=== PATIENT | male | born 1945 | race Caucasian/White ===

== ENCOUNTER 2016-12-16 02:22 | Emergency (ER) | payer OTHER, MEDICARE ==
[~2016-12-16] VITALS: Ht 162.6 cm; Wt 73.0 kg
[~2016-12-16 02:22] MED LIST: BACTRIM 400 MG-1 TAB PO; BENZTROPINE ME0.5 M1 PO; DIVALPROEX SOD500 MG PO; FINASTERIDE5 MG PO; KEFLEX500 MG PO; OLANZAPINE20 MG PO; PYRIDIUM100 MG PO; SIMVASTATIN40 MG PO; TAMSULOSIN HYD0.4 MG PO; TYLENOL #31 TAB PO
--- NOTE | 2016-12-16 02:33 | ED AMS/SEIZURE/WEAK/DIZZY ---
History of Present Illness General Chief Complaint: ETOH/Drug Related Complaint Stated Complaint: "BIBA PER EMS ETOH" Source: patient, EMS Exam Limitations: no limitations Vital Signs & Intake/Output Vital Signs & Intake/Output Vital Signs Date Time Temp Pulse Resp B/P Pulse O2 O2 Flow FiO2 Ox Delivery Rate 12/16 0352 97.4 86 18 146/86 94 Room Air 12/16 224 96.8 100 18 158/107 94 Room Air Allergies Coded Allergies: NO KNOWN ALLERGIES (06/08/16) Reconcile Medications Benztropine Mesylate 0.5 MG TABLET 1 TAB PO BID MENTAL HEALTH (Reported) Divalproex Sodium (Divalproex Sodium ER) 500 MG TAB.ER.24H 1 TAB PO BID MENTAL HEALTH (Reported) Finasteride 5 MG TAB 1 TAB PO AT BEDTIME PROSTATE (Reported) Olanzapine 20 MG TABLET 1 TAB PO QPM MENTAL HEALTH (Reported) Simvastatin 40 MG TABLET 1 TAB PO QPM CHOLESTEROL (Reported) TAMSULOSIN HCL (Tamsulosin Hydrochloride) 0.4 MG CAP 1 CAP PO DAILY PROSTATE (Reported) Triage Nurses Notes Reviewed? yes Onset: Gradual Duration: hour(s): Timing: single episode today Injury Environment: street Severity: moderate Modifying Factors: Improves With: rest. Associated Symptoms: increased confusion HPI: 71 yo gentleman h/o alcohol abuse and bipolar disorder presents to the ED via ambulance to erratic behavior on the street. Per the medics, he was found by police having a verbal altercation with a stop sign. She notes that he drank, "a whole bottle," of liquor earlier this evening. He shares that he fell and hit the left side of his face. He denies LOC. It's that he is otherwise well and has no pain or discomfort. Past History Travel History Traveled to [place] past 21 day No Medical History Any Pertinent Medical History? see below for history Neurological: NONE EENT: NONE Cardiovascular: hyperlipidemia Respiratory: NONE Gastrointestinal: GERD Hepatic: NONE Renal: NONE Musculoskeletal: NONE Psychiatric: alcohol dependence, bipolar disease, schizophrenia, MILD MENTAL RETARDATION Endocrine: NONE Blood Disorders: NONE Cancer(s): NONE [employer]/Reproductive: NONE Surgical History Surgical History: NONE Psychosocial History Who do you live with Patient/Self What is your primary language Armenian Family History Hx Contributory? No Review of Systems Review of Systems Constitutional: Reports: no symptoms. EENTM: Reports: no symptoms. Respiratory: Reports: no symptoms. Cardiovascular: Reports: no symptoms. GI: Reports: no symptoms. Genitourinary: Reports: no symptoms. Musculoskeletal: Reports: no symptoms. Skin: Reports: no symptoms. Neurological/Psychological: Reports: no symptoms. Hematologic/Endocrine: Reports: no symptoms. Immunologic/Allergic: Reports: no symptoms. All Other Systems: Reviewed and Negative Physical Exam Physical Exam General Appearance: well developed/nourished, mild distress, intoxicated Head: abrasion on his left cheek with swelling . Mild tenderness to palpation. No deformity Eyes: Bilateral: normal appearance, PERRL, EOMI. Ears, Nose, Throat: normal pharynx, normal ENT inspection Neck: normal inspection, supple, full range of motion Respiratory: normal breath sounds, chest non-tender, no respiratory distress, quiet respiration, lungs clear Cardiovascular: regular rate/rhythm Gastrointestinal: normal bowel sounds, soft, non-tender Back: normal inspection, normal range of motion, vertebral tenderness Extremities: normal range of motion Neurologic/Psych: no motor/sensory deficits, awake, alert, oriented x 3 Reflexes: 1+: bicep (R), bicep (L), knee (R), knee (L). Core Measures ACS in differential dx? No CVA/TIA Diagnosis: No Severe Sepsis Present: No Septic Shock Present: No Progress Differential Diagnosis: alcohol intoxication, dehydration, drug intoxication Plan of Care: Orders Procedure Date/time Status Regular Diet 12/16 B Active ETHANOL 12/16 243 Complete COMPREHENSIVE METABOLIC PANEL 12/16 243 Complete CBC WITHOUT DIFFERENTIAL 12/16 243 Complete URINE DRUG SCREEN FOR ER ONLY 12/16 233 Complete Laboratory Tests 12/16/16 0308: Anion Gap 9, Estimated GFR 60, BUN/Creatinine Ratio 11.7, Glucose 111 H, Calcium 9.8, Total Bilirubin 0.5, AST 27, ALT 22, Alkaline Phosphatase 65, Total Protein 7.0, Albumin 4.1, Globulin 2.9, Albumin/Globulin Ratio 1.4, CBC w Diff NO MAN DIFF REQ, RBC 4.74, MCV 93.3, MCH 30.9, RDW 14.6 H, MPV 7.9, Gran % 77.2 H, Lymphocytes % 14.9 L, Monocytes % 7.2, Eosinophils % 0.3, Basophils % 0.4, Absolute Granulocytes 7.4 H, Absolute Lymphocytes 1.4, Absolute Monocytes 0.7 H, Absolute Eosinophils 0, Absolute Basophils 0, PUBS MCHC 33.2, Serum Alcohol < 10.0 12/16/16 0250: Urine Opiates Screen < 100.00, Methadone Screen 42, Barbiturate Screen < 60, Ur Phencyclidine Scrn < 6.00, Amphetamines Screen < 100, U Benzodiazepines Scrn < 85, Urine Cocaine Screen < 50, Urine Cannabis Screen < 5.00 Patient comfortable. (JORGE JOEL,CLAUDIA Mckeon) Diagnostic Imaging: Viewed by Me: CT Scan. Discussed w/RAD: CT Scan. Radiology Impression: head/neck/maxillofacial... no acute fx/bleed. Initial ED EKG: none Comments: PATIENT: JACKIE MENDENHALL PRESENT AGE: 71 PATIENT ACCOUNT NO: [id number] : 45 LOCATION: [facility] ORDERING PHYSICIAN: CLAUDIA PATEL MD SERVICE DATE: 12/16/16 EXAM TYPE: CAT - CT CERV SPINE WO IV CONTRAST; CT HEAD WO IV CONTRAST; CT MAXILLOFACIAL W/O CON CT HEAD WITHOUT IV CONTRAST CT CERVICAL SPINE WITHOUT IV CONTRAST CT MAXILLOFACIAL WITHOUT IV CONTRAST INDICATION: Head injury/intoxication. COMPARISON: Head CT 06/09/2016. TECHNIQUE: Multidetector CT acquisitions of the head, maxillofacial region, and cervical spine were obtained without IV contrast. Multiplanar reformats were acquired and utilized for image interpretation. FINDINGS: HEAD: There is no intracranial hemorrhage, hydrocephalus, extra-axial surface collection, midline shift, or other herniation pattern. Mineralization within the globus pallidus bilaterally. Chronic microangiopathy and global cerebral volume loss. Warren to white matter differentiation is diffusely maintained without evidence of an evolved acute territorial infarct. The basilar cisterns are preserved. No significant soft tissue abnormality. No acute osseous abnormality. The paranasal sinuses and the mastoid air cells are well-aerated. MAXILLOFACIAL: There is left facial soft tissue swelling. The mandible, maxilla, pterygoid plates, nasal bones, zygomatic arches, paranasal sinus andre, and bony orbits are intact. No acute osseous abnormality within the maxillofacial region. Chronic traumatic deformity of the right orbital floor. Moderate opacification of the left maxillary sinus with an associated retention cyst. A polyp extends from the left maxillary sinus and the left nasal cavity via the left maxillary red-ostium. There is mild mucosal thickening within the inferior frontal sinuses and throughout the ethmoid air cells bilaterally. Mild mucosal thickening within the left sphenoid sinus. There is leftward deviation of the nasal septum with a leftward directed septal spur. Arminda bullosa within the middle turbinates bilaterally. Degenerative changes involving the right TMJ. Significant periapical disease involving the residual right maxillary dentition and the left mandibular first premolar. Left ocular staphyloma. CERVICAL SPINE: There is anatomic alignment of the vertebral bodies and posterior elements. Severe disc volume loss and large endplate osteophytes at C5-C6 and C6-C7. Multilevel facet arthropathy. There is no acute fracture and there is no acute subluxation. The craniocervical and atlantoaxial articulations are normal. There is no prevertebral soft tissue swelling. No significant soft tissue abnormality within the neck. Centrilobular emphysema within the upper lungs. IMPRESSION: 1. No acute intracranial abnormality. Chronic microangiopathy and global cerebral volume loss. 2. No acute osseous abnormality within the cervical spine. 3. No acute osseous abnormality within the maxillofacial region. There is left facial soft tissue swelling. Chronic traumatic deformity of the right orbital floor. Moderate opacification of the left maxillary sinus with a polyp extending from the left maxillary sinus into the left nasal cavity via the left maxillary red-ostium. There is leftward deviation of the nasal septum with a leftward directed septal spur. Arminda bullosa within the middle turbinates bilaterally. DICTATED BY: FABRICE SCHNEIDER MD DATE/TIME DICTATED:12/16/16318 MAIL SUPERINTENDENT:MARIE DATE/TIME TRANSCRIBED:12/16/16318 CONFIDENTIAL, DO NOT COPY WITHOUT APPROPRIATE AUTHORIZATION. <Electronically signed in Other Vendor System> SIGNED BY: FABRICE SCHNEIDER MD 12/16/16 0334 Departure Departure Disposition: HOME OR SELF CARE Condition: Stable Clinical Impression Primary Impression: Alcohol intoxication delirium Secondary Impressions: Head injury Referrals: KINGS ARMAS MD (PCP/Family) Departure Forms: Customer Survey General Discharge Information Comments 12/16/16, 5:41AM...pt awake, alert, comfortable. He is ax0x3. He does not wish to stay. He is not intoxicated and has a negative UDS. He would like to go home. He has a case packer who assists him. He is safe to leave this AM. 12/16/16, 6:55am... pt lucid, able to amulate without problem. He does not wish to stay for psychiatric evaluation. He is safe for discharge and has care team in place for assistance.
[2016-12-16 03:21] LABS: ABSOLUTE BASOPHIL COUNT 0 /CUMM (0.0-0.2); ABSOLUTE EOSINOPHIL COUNT 0 /CUMM (0.0-0.7); ABSOLUTE GRANULOCYTE CT 7.4 /CUMM (1.4-6.5); ABSOLUTE LYMPH COUNT 1.4 /CUMM (1.2-3.4); ABSOLUTE MONOCYTE COUNT 0.7 /CUMM (0.10-0.60); BASOPHIL % 0.4 % (0.0-2.0); EOSINOPHIL % 0.3 % (0-5); GRANULOCYTE % 77.2 % (42.2-75.2); HEMATOCRIT 44.2 % (42-52); MEAN CORPUSCULAR HGB 30.9 PG (27.0-31.0); MEAN CORPUSCULAR HGB CONC 33.2 G/DL (33.0-37.0); MEAN CORPUSCULAR VOLUME 93.3 FL (80.0-94.0); MEAN PLATELET VOLUME 7.9 FL (7.4-10.4); PLATELET COUNT 232 /CUMM (130-400); RBC DISTRIBUTION WIDTH 14.6 % (11.5-14.5); RED BLOOD CELL CT 4.74 /CUMM (4.70-6.10); WHITE BLOOD CELL COUNT 9.6 /CUMM (4.8-10.8)
--- NOTE | 2016-12-16 03:34 | CT SCAN REPORT ---
CT HEAD WITHOUT IV CONTRAST CT CERVICAL SPINE WITHOUT IV CONTRAST CT MAXILLOFACIAL WITHOUT IV CONTRAST INDICATION: Head injury/intoxication. COMPARISON: Head CT 06/09/2016. TECHNIQUE: Multidetector CT acquisitions of the head, maxillofacial region, and cervical spine were obtained without IV contrast. Multiplanar reformats were acquired and utilized for image interpretation. FINDINGS: HEAD: There is no intracranial hemorrhage, hydrocephalus, extra-axial surface collection, midline shift, or other herniation pattern. Mineralization within the globus pallidus bilaterally. Chronic microangiopathy and global cerebral volume loss. Warren to white matter differentiation is diffusely maintained without evidence of an evolved acute territorial infarct. The basilar cisterns are preserved. No significant soft tissue abnormality. No acute osseous abnormality. The paranasal sinuses and the mastoid air cells are well-aerated. MAXILLOFACIAL: There is left facial soft tissue swelling. The mandible, maxilla, pterygoid plates, nasal bones, zygomatic arches, paranasal sinus andre, and bony orbits are intact. No acute osseous abnormality within the maxillofacial region. Chronic traumatic deformity of the right orbital floor. Moderate opacification of the left maxillary sinus with an associated retention cyst. A polyp extends from the left maxillary sinus and the left nasal cavity via the left maxillary red-ostium. There is mild mucosal thickening within the inferior frontal sinuses and throughout the ethmoid air cells bilaterally. Mild mucosal thickening within the left sphenoid sinus. There is leftward deviation of the nasal septum with a leftward directed septal spur. Arminda bullosa within the middle turbinates bilaterally. Degenerative changes involving the right TMJ. Significant periapical disease involving the residual right maxillary dentition and the left mandibular first premolar. Left ocular staphyloma. CERVICAL SPINE: There is anatomic alignment of the vertebral bodies and posterior elements. Severe disc volume loss and large endplate osteophytes at C5-C6 and C6-C7. Multilevel facet arthropathy. There is no acute fracture and there is no acute subluxation. The craniocervical and atlantoaxial articulations are normal. There is no prevertebral soft tissue swelling. No significant soft tissue abnormality within the neck. Centrilobular emphysema within the upper lungs. IMPRESSION: 1. No acute intracranial abnormality. Chronic microangiopathy and global cerebral volume loss. 2. No acute osseous abnormality within the cervical spine. 3. No acute osseous abnormality within the maxillofacial region. There is left facial soft tissue swelling. Chronic traumatic deformity of the right orbital floor. Moderate opacification of the left maxillary sinus with a polyp extending from the left maxillary sinus into the left nasal cavity via the left maxillary red-ostium. There is leftward deviation of the nasal septum with a leftward directed septal spur. Arminda bullosa within the middle turbinates bilaterally.
[2016-12-16 06:52] VITALS: BP 145/84
[2016-12-16] MEDS ORDERED: ZYPREXA20 M1 PO (06:52)
== END 2016-12-16 06:54 ==
LOC: ERH 02:22
PROVIDERS: Pediatrics
DX: S09.90XA Unspecified injury of head, initial encounter (principal); F10.121 Alcohol abuse with intoxication delirium; S09.93XA Unspecified injury of face, initial encounter; W19.XXXA Unspecified fall, initial encounter
CPT/HCPCS: 80307; G0480

== ENCOUNTER 2017-12-19 17:45 | Emergency (ER) | payer OTHER, MEDICARE ==
[~2017-12-19 17:45] MED LIST changes: +DIVALPROEX SOD500 M2 PO; +DIVALPROEX SOD500 M3 PO; -DIVALPROEX SOD500 MG PO; +FINASTERIDE5 M1 PO; -FINASTERIDE5 MG PO; +FLOMAX0.4 M1 PO; +NICORELIEF2 MG PO; +OLANZAPINE20 M1 PO; -OLANZAPINE20 MG PO; +OLANZAPINE5 M2 PO; +ONE DAILY MULT1 EAC2 PO; +SIMVASTATIN40 M1 PO; -SIMVASTATIN40 MG PO; -TAMSULOSIN HYD0.4 MG PO; +ZYPREXA20 M1 PO
[2017-12-19 19:06] LABS: ABSOLUTE BASOPHIL COUNT 0 /CUMM (0.0-0.2); ABSOLUTE EOSINOPHIL COUNT 0 /CUMM (0.0-0.7); ABSOLUTE GRANULOCYTE CT 4.9 /CUMM (1.4-6.5); ABSOLUTE LYMPH COUNT 1.9 /CUMM (1.2-3.4); ABSOLUTE MONOCYTE COUNT 0.7 /CUMM (0.10-0.60); BASOPHIL % 0.3 % (0.0-2.0); EOSINOPHIL % 0.4 % (0-5); GRANULOCYTE % 64.5 % (42.2-75.2); HEMATOCRIT 38.7 % (42-52); MEAN CORPUSCULAR HGB 31.2 PG (27.0-31.0); MEAN CORPUSCULAR HGB CONC 33.4 G/DL (33.0-37.0); MEAN CORPUSCULAR VOLUME 93.3 FL (80.0-94.0); MEAN PLATELET VOLUME 7.7 FL (7.4-10.4); PLATELET COUNT 217 /CUMM (130-400); RBC DISTRIBUTION WIDTH 13.6 % (11.5-14.5); RED BLOOD CELL CT 4.15 /CUMM (4.70-6.10); WHITE BLOOD CELL COUNT 7.5 /CUMM (4.8-10.8)
--- NOTE | 2017-12-19 19:24 | ED AMS/SEIZURE/WEAK/DIZZY ---
See Addendum History of Present Illness General Chief Complaint: Altered Mental Status Stated Complaint: BIBA ?AMS Vital Signs & Intake/Output Vital Signs & Intake/Output Vital Signs Date Time Temp Pulse Resp B/P B/P Pulse O2 O2 Flow FiO2 Mean Ox Delivery Rate 12/22 0956 68 18 142/70 12/22 0946 97.1 88 18 152/70 97 Room Air 12/22 0918 96.7 98 18 148/88 98 12/22 0739 97.1 98 18 150/89 98 Room Air 12/22 0430 18 12/21 2223 98.3 74 18 132/78 97 Room Air 12/21 1935 98.5 86 18 168/99 97 Room Air 12/21 1533 97.8 77 20 130/82 96 Room Air Allergies Coded Allergies: NO KNOWN ALLERGIES (06/08/16) Reconcile Medications Benztropine Mesylate 0.5 MG TABLET 1 TAB PO BID to prevent extrapyramidal s/e Divalproex Sodium 500 MG TABLET.DR 500 MG PO DAILY mood stabilizer Divalproex Sodium 500 MG TABLET.DR 2 TAB PO QPM mood stabilizer Finasteride 5 MG TABLET 1 TAB PO QPM PROSTATE (Reported) Multivitamin (One Daily Multivitamin) 1 EACH TABLET 1 TAB PO DAILY vitamin supplement Nicotine (Nicorelief) 2 MG GUM 2 MG PO Q2P PRN nicotine craving Olanzapine 20 MG TABLET 1 TAB PO QPM mood stability Olanzapine 5 MG TABLET 1 TAB PO DAILY mood stability Simvastatin (Simvastatin*) 40 MG TABLET 1 TAB PO QPM CHOLESTEROL (Reported) Tamsulosin HCl (Flomax) 0.4 MG CAP.ER.24H 1 CAP PO DAILY PROSTATE (Reported) Triage Note: PT BIBA FROM HOME. PER EMS REPORT PT WAS RECENTLY D/C FROM THE HOSPITAL R/T PSYCHIATRIC ISSUES. PT WAS D/C HOME WITH VNA SERVICES. PER EMS VNA WENT TO THE HOUSE TODAY AND REPORTED "THE PT WASN'T RIGHT". PT ARRIVES ALERT AND CONFUSED. PT IS RAMBLING WITH NONSENSICAL SPEECH. PT HAS HEMATOM UNDER R EYE. REPORTS "THAT OLD THING HAS BEEN THERE FOREVER". RESPIRATIONS EVEN AND NON LABORED. SKIN IS WARM AND DRY. Triage Nurses Notes Reviewed? yes (Shireen JOEL,Qamar Pearl) General Source: patient Exam Limitations: confusion Onset: Gradual Duration: unknown duration Timing: recent history Injury Environment: home Severity: mild Modifying Factors: Improves With: rest. Associated Symptoms: "I feel fine and want to go home." HPI: 72 yo gentleman h/o mental retardation, presents via ambulance, "because he is not acting right." Per the patient, he is from home, has regular VNA, "but they are crazy." He denies any pain. He states that he is feeling well, without abdominal discomfort, chest pain, dizziness. He states he has a good appetite. He is otherwise well. (Kevan JOEL,Ozzy Mckeon) Past History Travel History Traveled to [place] past 21 day No Medical History Neurological: NONE EENT: NONE Cardiovascular: hyperlipidemia Respiratory: NONE Gastrointestinal: GERD Hepatic: NONE Renal: NONE Musculoskeletal: NONE Psychiatric: alcohol dependence, schizo affective disorder, MILD INTELLECTUAL DISABILITIES Endocrine: NONE Blood Disorders: NONE Cancer(s): NONE CREDIT OPERATIONS SPECIALIST/Reproductive: NONE History of MRSA: No History of VRE: No History of CDIFF: No Surgical History Surgical History: NONE Psychosocial History Who do you live with Patient/Self What is your primary language Latvian Tobacco Use: Current Daily Use Daily Tobacco Use Amount/Type: => 5 Cigarettes daily Family History Hx Contributory? No (Shireen JOEL,Qamar Pearl) Medical History Any Pertinent Medical History? see below for history (Kevan JOEL,Ozzy Mckeon) Review of Systems Review of Systems Constitutional: Reports: no symptoms. EENTM: Reports: no symptoms. Respiratory: Reports: no symptoms. Cardiovascular: Reports: no symptoms. GI: Reports: no symptoms. Genitourinary: Reports: no symptoms. Musculoskeletal: Reports: no symptoms. Skin: Reports: no symptoms. Neurological/Psychological: Reports: no symptoms. Hematologic/Endocrine: Reports: no symptoms. Immunologic/Allergic: Reports: no symptoms. All Other Systems: Reviewed and Negative (Kevan JOEL,Ozzy Mckeon) Physical Exam Physical Exam General Appearance: well developed/nourished, no apparent distress Head: slight ecchymosis on right cheek, appears old Eyes: Bilateral: normal appearance. Ears, Nose, Throat: normal pharynx, normal ENT inspection Neck: normal inspection, supple, full range of motion Respiratory: normal breath sounds, chest non-tender, no respiratory distress, quiet respiration, lungs clear Cardiovascular: regular rate/rhythm Gastrointestinal: normal bowel sounds, soft, non-tender, no organomegaly Back: normal inspection, normal range of motion Extremities: normal range of motion Neurologic/Psych: no motor/sensory deficits, awake, alert, pt knows name Skin: intact, normal color, warm/dry Core Measures ACS in differential dx? No CVA/TIA Diagnosis No Sepsis Present: No Sepsis Focused Exam Completed? No (Kevan JOEL,Ozzy Mckeon) Progress Plan of Care: Current Medications Sig/Andria Start time Last Medication Dose Stop Time Status Admin Divalproex Sodium 1,000 MG QPM 12/20 2200 UNVr 12/21 (Depakote) 2238 Finasteride 5 MG QPM 12/20 2200 UNVr 12/21 (Proscar) 2238 Olanzapine 20 MG AT BEDTIME 12/20 2200 AC 12/21 (Zyprexa) 2238 Atorvastatin Calcium 20 MG 1700 12/20 1700 UNVr 12/21 (Lipitor) 2100 Tamsulosin HCl 0.4 MG DAILY 12/20 1212 UNVr 12/22 (Flomax) 0956 Olanzapine 5 MG DAILY 12/20 1211 UNVr 12/22 (Zyprexa) 0956 Divalproex Sodium 500 MG DAILY 12/20 1210 UNVr 12/22 (Depakote) 0956 Benztropine Mesylate 0.5 MG BID 12/20 1209 UNVr 12/22 (Cogentin 0.5 MG Tab) 0956 7:15 12/20/17 PM PATIENT SIGNED OUT TO ME BY DR RUANO. PENDING GERIPSYCH PLACEMENT. (Mikael JOEL,Ruth) Comments: 12/19/2017 7:26:10 PM patient signed out to Dr. Mathru at shift cell changer. (Shireen JOEL,Qamar Pearl) Differential Diagnosis: dehydration, electrolyte imbalance, mental retardation vs other. Diagnostic Imaging: Viewed by Me: Radiology Read, CT Scan. Discussed w/RAD: Radiology Read, CT Scan. Radiology Impression: PATIENT: JACKIE MENDENHALL PRESENT AGE: 72 PATIENT ACCOUNT NO: [id number] : 45 LOCATION: [facility] ORDERING PHYSICIAN: Qamar Iyer MD SERVICE DATE: 12/19/17 EXAM TYPE : CAT - CT HEAD WO IV CONTRAST EXAMINATION: CT HEAD WITHOUT CONTRAST CLINICAL INFORMATION: Altered mental status. COMPARISON: 06/12/2017. TECHNIQUE: Contiguous helical images of the brain were obtained without IV contrast. Multiplanar reconstructions were performed. DLP: 621 mGy-cm. FINDINGS: There are no pathologic extra-axial fluid collections. The lateral, third, fourth ventricles are prominent, though stable, age-appropriate and concordant with the appearance of the sulci. There is no evidence for acute intraparenchymal hemorrhage or infarct. And there is periventricular low-attenuation indicative of small vessel disease. There is neither mass nor mass effect. There is no shift of midline structures. There is a mucus retention cyst or polyp within the left maxillary sinus. There is patchy ethmoid sinus opacification. The paranasal sinuses and mastoid air cells are otherwise clear. There are no osseous lesions. IMPRESSION: No evidence for acute intracranial injury. Stable age-appropriate appearance of the brain. Paranasal sinus disease and left maxillary sinus mucosal retention cyst or polyp. DICTATED BY: Cipriano Nuñez MD DATE/TIME DICTATED:12/19/171920 SPAR CAP BEVELER:MARIE DATE/TIME TRANSCRIBED:1920 CONFIDENTIAL, DO NOT COPY WITHOUT APPROPRIATE AUTHORIZATION. < Electronically signed in Other Vendor System> SIGNED BY: Cipriano Nuñez MD 12/19/171926 CXR Impression: no acute abnormality, no infiltrates, normal size heart, normal mediastinum, PATIENT: JACKIE MENDENHALL PRESENT AGE: 72 PATIENT ACCOUNT NO: [id number] : 45 LOCATION: [facility] ORDERING PHYSICIAN: Qamar Iyer MD SERVICE DATE: 12/19/17 EXAM TYPE: RAD - XRY-PORTABLE CHEST XRAY EXAMINATION: CHEST 1 VIEW CLINICAL INFORMATION: Altered mental status. COMPARISON: 10/22/2017. TECHNIQUE: An AP view of the chest is provided. FINDINGS: The cardiac silhouette is stable. The mediastinal and hilar contours are unremarkable. There are neither pleural effusions nor pneumothoraces. There are no consolidations. The osseous structures are unremarkable. IMPRESSION: No evidence for acute disease. DICTATED BY: Cipriano Nuñez MD DATE/TIME DICTATED:1925 SPAR CAP BEVELER:MARIE DATE/TIME TRANSCRIBED:12/19/171925 CONFIDENTIAL, DO NOT COPY WITHOUT APPROPRIATE AUTHORIZATION. <Electronically signed in Other Vendor System> SIGNED BY: Cipriano Nuñez MD 12/19/17 193 Initial ED EKG: borderline t waves, no acute changes. Hand-Off Endorsed To: Juan Ruano MD Endorsed Time: 0700 Pending: consult (Ozzy Mathur MD) Hand-Off Endorsed To: Ruth Youssef MD Endorsed Time: 1900 Pending: other (crisis, case mgmt) (Juan Ruano MD) Hand-Off Endorsed To: Juan Ruano MD Endorsed Time: 0700 Pending: other (CRISIS BED SEARCH) (Ruth Youssef MD) Departure Departure Condition: Stable Referrals: Gautam Carrizales MD (PCP/Family) Departure Forms: Customer Survey General Discharge Information (Shireen JOEL,Qamar Pearl) Departure Disposition: STILL A PATIENT Clinical Impression Primary Impression: Mental retardation Comments 12/19/17, 23:30.... pt feels well, from home, would like to go home. I called his next of kin... left message to corroborate history. No answer. Pt will need case management eval for safe discharge. Pt signed out to dr. ruano at 7am. (Ozzy Mathur MD) Departure Comments 12/22/17 11 AM The patient has been accepted to [facility]. Accepting physician is Dr. Rodriguez. (Qamar Askew DO) Pt signed out to dr. ruano at 7am. (Ozzy Mathur MD) 72 PATIENT ACCOUNT NO: [id number] : 45 LOCATION: [facility] ORDERING PHYSICIAN: Qamar Iyer MD SERVICE DATE: 12/19/17 EXAM TYPE: RAD - XRY-PORTABLE CHEST XRAY EXAMINATION: CHEST 1 VIEW CLINICAL INFORMATION: Altered mental status. COMPARISON: 10/22/2017. TECHNIQUE: An AP view of the chest is provided. FINDINGS: The cardiac silhouette is stable. The mediastinal and hilar contours are unremarkable. There are neither pleural effusions nor pneumothoraces. There are no consolidations. The osseous structures are unremarkable. IMPRESSION: No evidence for acute disease. DICTATED BY: Cipriano Nuñez MD DATE/TIME DICTATED:1925 SPAR CAP BEVELER:MARIE DATE/TIME TRANSCRIBED:12/19/171925 CONFIDENTIAL, DO NOT COPY WITHOUT APPROPRIATE AUTHORIZATION. <Electronically signed in Other Vendor System> SIGNED BY: Cipriano Nuñez MD 12/19/171931 Initial ED EKG: borderline t waves, no acute changes. Hand-Off Endorsed To: Juan Ruano MD Endorsed Time: 0700 Pending: consult (Ozzy Mathur MD) Hand-Off Endorsed To: Ruth Youssef MD Endorsed Time: 1899 Pending: other (crisis, case mgmt) (Juan Ruano MD) Departure Departure Condition: Stable Referrals: Gautam Carrizales MD (PCP/Family) Departure Forms: Customer Survey General Discharge Information (Qamar Iyer MD) Departure Disposition: STILL A PATIENT Clinical Impression Primary Impression: Mental retardation Comments 12/19/17, 23:30.... pt feels well, from home, would like to go home. I called his next of kin... left message to corroborate history. No answer. Pt will need case management eval for safe discharge. Pt signed out to dr. ruano at 7am. (Ozzy Mathur MD) Hand-Off Endorsed To: Juan Ruano MD Endorsed Time: 0700 Pending: consult (Ozzy Mathur MD) Hand-Off Endorsed To: Ruth Youssef MD Endorsed Time: 1899 Pending: other (crisis, case mgmt) (Juan Ruano MD) Departure Departure Condition: Stable Referrals: Gautam Carrizales MD (PCP/Family) Departure Forms: Customer Survey General Discharge Information (Qamar Iyer MD) Departure Disposition: STILL A PATIENT Clinical Impression Primary Impression: Mental retardation Comments 12/19/17, 23:30.... pt feels well, from home, would like to go home. I called his next of kin... left message to corroborate history. No answer. Pt will need case management eval for safe discharge. Pt signed out to dr. ruano at 7am. (Ozzy Mathur MD)
--- NOTE | 2017-12-19 19:27 | CT SCAN REPORT ---
EXAMINATION: CT HEAD WITHOUT CONTRAST CLINICAL INFORMATION: Altered mental status. COMPARISON: 06/12/2017. TECHNIQUE: Contiguous helical images of the brain were obtained without IV contrast. Multiplanar reconstructions were performed. DLP: 621 mGy-cm. FINDINGS: There are no pathologic extra-axial fluid collections. The lateral, third, fourth ventricles are prominent, though stable, age-appropriate and concordant with the appearance of the sulci. There is no evidence for acute intraparenchymal hemorrhage or infarct. And there is periventricular low-attenuation indicative of small vessel disease. There is neither mass nor mass effect. There is no shift of midline structures. There is a mucus retention cyst or polyp within the left maxillary sinus. There is patchy ethmoid sinus opacification. The paranasal sinuses and mastoid air cells are otherwise clear. There are no osseous lesions. IMPRESSION: No evidence for acute intracranial injury. Stable age-appropriate appearance of the brain. Paranasal sinus disease and left maxillary sinus mucosal retention cyst or polyp.
--- NOTE | 2017-12-19 19:32 | RADIOLOGY REPORT ---
EXAMINATION: CHEST 1 VIEW CLINICAL INFORMATION: Altered mental status. COMPARISON: 10/22/2017. TECHNIQUE: An AP view of the chest is provided. FINDINGS: The cardiac silhouette is stable. The mediastinal and hilar contours are unremarkable. There are neither pleural effusions nor pneumothoraces. There are no consolidations. The osseous structures are unremarkable. IMPRESSION: No evidence for acute disease.
--- NOTE | 2017-12-20 14:28 | ED PSY CRISIS COLLATERAL NOTE ---
Collateral Note Collateral Note Family/Inform/Charisse Contacts: Crisis spoke to Gen Martel' visiting Nurse, . Tahmina reports she is currently working with the patient but that her home management supervisor is will be calling the [employer] worker because she does not believe their services are meeting his needs. She reports the patient has mostly been home when she goes to give him his medication so he has been taking it. However there were a few times this past week in which pt was not home and she had to come back. Tahmina reports that the patient has started to decompensate over the last year when he lost his older worker that he had for 17 years. She reports he has been hospitalized 3x since then. She reports he lost the worker due to a [employer]riel funded program closing in which staff would go out and spend time with the patient. She reports he is still able to get 17 hours per week of services through [employer]. Tahmina reports it used to be 5 days per week now it's 3 days per week (still total of 17 hours). She reports his current worker, Rosita, resigned because she can't tolerate his behaviors: increased drinking, not eating, yelling at her, not buying food with his money and spending his money on cigarettes. Tahmina reports that the patient is a "racist" and this is why she thinks the patient is so mean to Rosita, as she is Black. Per Tahmina, Rosita called the police yesterday when the pt was yelling at her. Tahmina reports she hasn't seen any evidence of the patient drinking since Friday of this past week. She stated she checked his fridge this week and he has some lunch meat and water. She reports he also had some canned soups and dry pasta. She stated he can cook basic items for himself. She reports that neighbors informed her that he was up at 3am recently pounding on his neighbors door. Tahmina states that she does not like the patient can live at home and needs more services than he has. She is concerned about his safety.
--- NOTE | 2017-12-20 14:52 | ED PSY CRISIS COLLATERAL NOTE ---
Collateral Note Collateral Note Family/Inform/Charisse Contacts: Recieved call from Phil Schmid (Director Of Instrumental Music at [facility]- agency contracted through [facility] to provide supportive inhome services. Phil is Rosita's supervisor beet end. Phil reports that he had directed Rosita to call 911 if the patient presented as manic and not himself during her next visit. He reports that he is concerned about the pt has he continues to decompensate and required hospitalizations and ED visits. He reported that the patient called him after he fell but would not let a doctor check him out. psychology clinician clarified if Phil was referring to the hemotoma under the pt's eye in which Phil replied yes. Informed Phil that pt allowed him to be seen medically and he had a CT Scan which did not yield any significant findings. Phil reports that he is going to try to set up a meeting with the [facility]'s [facility] social worker but since she is a state employee that meeting will not happen until next week. He provided his contact information and asked to be updated when a disposition is made for the pt. Phil Schmid [phone] [email or web address]
--- NOTE | 2017-12-20 17:30 | ED PSYCH CRISIS CONSULTATION ---
See Addendum Crisis Consult Basic Assessment Date of Consult: 12/20/17 Responsible Person/Accompanied By: Self Insurance Authorization: Insurance #1: Insurance name: MEDICARE A Phone number: Policy number: [id number] Group number: Authorization number: ED Provider: Patient's ED Provider: Qamar Iyer MD Primary Care Physician: Patient's PCP: Gautam Carrizales MD PCP's Current Psychiatrist: N/A Chief Complaint: Altered Mental Status Patient's Quote: "Whatever. You don't need my name for nothing." Present Illness: The patient is a 72 year old single male BIBA to the ED with a complaint of altered mental status. The patient has in home services through [facility] per collateral and the ambulance was called as the patient's worker reports he was decompensating becoming increasingly manic. The patient presented as manic, labile and confused with disorganized and tangential thought and speech. The patient was oriented x1 (knowing his name), but not knowing he was in the hospital or what year or month it was when asked. When asked where he was the patient responded "This was an old school, right?". When asked what year it was the patient replied "2017 or something, 2018" and did not have an answer when asked the month replying with a shrug of his shoulders. The patient stated "You don't need my name for nothing, nothing." when asked his name. The patient could not recall where he was earlier today or how he got to the hospital when asked. The patient replied "I do not want to hear that" when asked if he "wanted to kill himself or had suicidal thoughts." The patient denied having auditory or visual hallucinations. The patient replied "no" when asked if he heard voices that were not his. The patient replied "pretty good" when asked about his sleep and "it comes and goes" when asked about his appetite. The patient states he does drink alcohol on occasion when asked. He replied "beer, the cheap stuff". The patient has a history of Schizoaffective disorder, Alcohol use disorder and mental retardation as diagnosed in his last inpatient stay at [facility] with a discharge date of 11/18/2017. The patient is gravely disabled and an inpatient hospital stay is recommended to stabilize mood and address cognitive deficiencies. Patient's Address[facility] [address] [place] [address],[place] [address] Other Phone Number: Who Do You Live With? Patient/Self Family/Informants Interviewed: Phil Schmid & Tahmina (Visiting Nurse) [phone] Allergies - Coded Allergies: NO KNOWN ALLERGIES (06/08/16) Current Medications - Scheduled Medications Benztropine Mesylate 0.5 MG TABLET 1 TAB PO BID to prevent extrapyramidal s/e #28 TAB Prescribed by Ozzy Trejo MD on 11/18/17 Divalproex Sodium 500 MG TABLET.DR 500 MG PO DAILY mood stabilizer #14 TAB Prescribed by Ozzy Trejo MD on 11/18/17 Divalproex Sodium 500 MG TABLET.DR 2 TAB PO QPM mood stabilizer #28 TAB Prescribed by Ozzy Trejo MD on 11/18/17 Finasteride 5 MG TABLET 1 TAB PO QPM PROSTATE (Reported) Entered as Reported by Weston Ashley on 08/04/15912 Multivitamin (One Daily Multivitamin) 1 EACH TABLET 1 TAB PO DAILY vitamin supplement #14 TAB Prescribed by Ozzy Trejo MD on 11/18/17 Olanzapine 20 MG TABLET 1 TAB PO QPM mood stability #14 TAB Prescribed by Ozzy Trejo MD on 11/18/17 Olanzapine 5 MG TABLET 1 TAB PO DAILY mood stability #14 TAB Prescribed by Ozzy Trejo MD on 11/18/17 Simvastatin (Simvastatin*) 40 MG TABLET 1 TAB PO QPM CHOLESTEROL (Reported) Entered as Reported by Weston Ashley on 10/13/14 1521 Tamsulosin HCl (Flomax) 0.4 MG CAP.ER.24H 1 CAP PO DAILY PROSTATE (Reported) Entered as Reported by Weston Ashley on 08/04/15 09 Scheduled PRN Medications Nicotine (Nicorelief) 2 MG GUM 2 MG PO Q2P PRN nicotine craving #100 GUM Prescribed by Ozzy Trejo MD on 11/18/17 Laboratory Results: Laboratory Tests 12/19/17 2243: Urine Opiates Screen < 100.00, Methadone Screen < 40, Barbiturate Screen < 60, Ur Phencyclidine Scrn < 6.00, Amphetamines Screen < 100, U Benzodiazepines Scrn < 85, Urine Cocaine Screen < 50, Urine Cannabis Screen 24.10, Urinalysis LIGHT H, Urine Color YEL, Urine Clarity CLEAR, Urine pH 7.0, Ur Specific [place] 1.010 , Urine Protein NEG, Urine Ketones NEG, Urine Nitrite NEG, Urine Bilirubin NEG, Urine Urobilinogen 0.2, Ur Leukocyte Esterase SMALL H, Ur Microscopic SEDIMENT EXAMINED, Urine WBC 1-3 H, Urine Bacteria FEW H, Urine Hemoglobin NEG, Urine Glucose NEG 12/19/17 1846: Anion Gap 11, Estimated GFR 60, BUN/Creatinine Ratio 13.3, Glucose 100 H, Calcium 9.5, Total Bilirubin 0.2, AST 63 H, ALT 34, Alkaline Phosphatase 53, Troponin I 0.02, Total Protein 5.9 L, Albumin 3.4 L, Globulin 2.5, Albumin/ Globulin Ratio 1.4, TSH 0.748, Thyroxine (T4) 7.7, Thyroxine Binding Indx 40.6 H, CBC w Diff NO MAN DIFF REQ, RBC 4.15 L, MCV 93.3, MCH 31.2 H, MCHC 33.4, RDW 13.6, MPV 7.7, Gran % 64.5, Lymphocytes % 25.0, Monocytes % 9.8 H, Eosinophils % 0.4, Basophils % 0.3, Absolute Granulocytes 4.9, Absolute Lymphocytes 1.9, Absolute Monocytes 0.7 H, Absolute Eosinophils 0, Absolute Basophils 0, Valproic Acid 55.9, Serum Alcohol < 10.0 Microbiology 12/19 2242 URINE ROUT: Urine Culture - RES Past History Past Medical History Neurological: NONE EENT: NONE Cardiovascular: hyperlipidemia Respiratory: NONE Gastrointestinal: GERD Hepatic: NONE Renal: NONE Musculoskeletal: NONE Psychiatric: alcohol dependence, schizo affective disorder, MILD INTELLECTUAL DISABILITIES Endocrine: NONE Blood Disorders: NONE Cancer(s): NONE HISTORICAL GUIDE/Reproductive: NONE Past Surgical History Surgical History: NONE Psychosocial History Strengths/Capabilities: The patient is well connected to [facility]. Physical Limitations (Interventions): None noted Psychiatric Treatment History Psych Treatment Psychiatric Treatment Yes Inpatient Treatment Yes Outpatient Treatment Yes Location of Treatment [facility] D/C 11/18/17 Reason for Treatment Schizoaffective disorder, bipolar type & alcohol use disorder Dates of Treatment 11/10/2017-11/18/2017 Response to Treatment Patient has decompensated under care of [facility] and Visiting Nurse presenting as manic and disoriented. Diagnosis by History: Alcohol Use Disorder Schizoaffective Disorder, bipolar type Substance Use/Abuse History Drug Use/Abuse Substances Used/Abused Yes Substance Used/Abused Alcohol First Use Unclear Last Used Unclear How much used/taken "Beer, the cheap stuff" Amount unclear How often unclear For how long unclear Route of use oral Substance Abuse Treatment Substance Abuse Treatment Past Substance Abuse [place] Yes Inpatient Treatment Yes Outpatient Treatment Yes Location of Treatment [facility] Reason for Treatment Alcohol Use Disorder Dates of Treatment 11/10/17-11/18/17 Response to Treatment Patient states he drinks alcohol on occassion. Unclear as to when he last drank and amount. Comments: None Current Mental Status Mental Status Orientation: Confused, Person Affect: Labile, Manic Speech: Evasive, Hyper-verbal Neuro-vegetative: Concentration Poor, Energy Increased Appearance Appearance- Dress/Hygiene: Patient dressed in hospital scrubs, disheveled with hematoma on eye. Behaviors Thought Process: Disorganized, Irrational, Tangential, Thought Blocking Thought Content: Thought Blocking Memory: Impaired Insight: Poor SI/HI Risk Assessment Past Suicidal Ideation/Attempts No Current Suicidal Ideation/Att No Past Homicidal Ideation/Att: No Current Homicidal Ideation/Attempts No Degree of Intent: None Danger To: Self Gravely Disabled: Inability, Lack of Insight Risk Factors: age (under 24/over 65), chronic/serious med cond., SA/MH hospitalized, substance abuse, lives alone, male, limited support Lethality Ratin PTSD Checklist PTSD Done? pt unable to participate ED Management Sitter: Yes Restraints: No DSM5/PS Stressors/Medical Prob Diagnosis' (DSM 5, Stressors, Medical): F25.0 Schizoaffective Disorder, bipolar type F10.99 Unspecified Alcohol-Related Disorder Current GAF: 22 Comments: None Departure Disposition Psych Medical Clearance Date: 12/20/17 Medically Cleared at: 1303 Time Started: 1630 Time Ended: 1714 Psychiatrist Consulted: Kely Caal MD Date Disposition Established: 12/20/17 Time Disposition Established: 1714 Plan for Disposition - Modality: Bed Search Rationale for Disposition: The patient presented as manic, labile and confused with disorganized and tangential thought and speech. The patient was oriented x1 (knowing his name), but not knowing he was in the hospital or what year or month it was when asked. The patient has a history of Schizoaffective disorder, Alcohol use disorder and mental retardation as diagnosed in his last inpatient stay at [facility] with a discharge date of 11/18/2017. Per collateral, the patient has been decompensating and becoming increasingly manic. Dr. Caal agrees the patient is gravely disabled and an inpatient hospital stay is recommended to stabilize mood and address cognitive deficiencies. A bed search will be conducted. Type of IP Admission: PEC Additional Instructions: None Referrals Gautam Carrizales MD (PCP/Family)
--- NOTE | 2017-12-21 15:20 | ED PSYCHIATRIST/APRN CONSULT ---
Psychiatrist/CARGO SERVICE SUPERVISOR ED Consult Assessment and Plan: 72 year old man with a history of developmental disability, psychosis/michelle, admitted with altered mental status. He is acutely psychotic, cursing and disorganized. he stated that he discharged me, Danielle been here, thats how I was I had my clothes, I wear double pants these fuckers I walked out of here before. I already told you when I saw you last week, keep your hands by your sides He was paranoid about others around him including staff watching him. He was unable to engage in any coherent discussion, cursing frequently, labile and derailed. He was brought in by his in home services worker who noted he has been increasingly manic. He was last hospitalized here about a month ago. He has about 17 hours of services per week and clearly needs a higher level of support. He is continuing to take his meds, depakote 1000mg at night time and 500mg daily , olanzapine 20mg at night time, benztropine 0.5mg twice daily, while he has been in the ER. MSE: incoherent, laughing to self, cursing to self, older man with poor grooming. He has bruising on his eye, he is unable to state from where. His speech is rapid and difficult to undertand. His mood is angry and affect is expansive and labile. His thought process is tangential, derailed. He is paranoid about staff next to him. He is internally preoccupied. He denies thoughts to harm self/others but is unreliable. His insight is absent and judgment is poor. Plan: IP admission for stabilization of manic psychosis; likely will need higher level of care when ready for discharged.
[2017-12-22 09:56] VITALS: BP 142/70
== END 2017-12-22 11:47 ==
LOC: ERH 17:45
PROVIDERS: Emergency Medicine
DX: F79 Unspecified intellectual disabilities (principal); E78.5 Hyperlipidemia, unspecified
CPT/HCPCS: 71045; 80307; 81001; 87086; 93005; 93010; G0463; G0480; J0330

== ENCOUNTER 2018-04-16 18:11 | Emergency (ER) | payer OTHER, MEDICARE ==
[~2018-04-16] VITALS: Ht 167.6 cm; Wt 68.0 kg
--- NOTE | 2018-04-16 18:22 | ED GENERAL ADULT ---
History of Present Illness General Chief Complaint: General Adult Stated Complaint: BIBA SWOLLEN FINGERS AND CONFUSION Source: patient, old records, EMS Exam Limitations: clinical condition, poor historian Vital Signs & Intake/Output Vital Signs & Intake/Output Vital Signs Date Time Temp Pulse Resp B/P B/P Pulse O2 O2 Flow FiO2 Mean Ox Delivery Rate 04/17 0637 91 04/17 0627 98.7 100 22 141/71 93 Room Air 04/17 0220 97 20 142/89 94 Room Air 04/17 0036 98.9 108 22 171/96 94 Room Air 04/16 2228 103 20 162/94 93 Room Air 04/16 2016 99.4 105 20 137/84 97 Room Air 04/16 1851 93 04/16 1815 98.5 110 18 174/79 94 Room Air ED Intake and Output 04/17 0000 04/16 1200 Intake Total 0 Output Total Balance 0 Intake, Oral 0 Patient 150 lb Weight Weight Estimated Measurement Method Allergies Coded Allergies: NO KNOWN ALLERGIES (06/08/16) Reconcile Medications Benztropine Mesylate 0.5 MG TABLET 1 TAB PO BID to prevent extrapyramidal s/e Divalproex Sodium 500 MG TABLET.DR 500 MG PO DAILY mood stabilizer Divalproex Sodium 500 MG TABLET.DR 2 TAB PO QPM mood stabilizer Finasteride 5 MG TABLET 1 TAB PO QPM PROSTATE (Reported) Multivitamin (One Daily Multivitamin) 1 EACH TABLET 1 TAB PO DAILY vitamin supplement Nicotine (Nicorelief) 2 MG GUM 2 MG PO Q2P PRN nicotine craving Olanzapine 20 MG TABLET 1 TAB PO QPM mood stability Olanzapine 5 MG TABLET 1 TAB PO DAILY mood stability Simvastatin (Simvastatin*) 40 MG TABLET 1 TAB PO QPM CHOLESTEROL (Reported) Tamsulosin HCl (Flomax) 0.4 MG CAP.ER.24H 1 CAP PO DAILY PROSTATE (Reported) Triage Note: PT BIBA FROM HOME. PER EMS WAS SENT IN BY VISITING RN DUE TO SWELLING TO L HAND AND FINGERS. PT REPORTS HE FELL YESTEDAY WHILE AT HOME. PT DOES RECALL FALLING. PT ALSO HAS A HOARSE VOICE WITH INTERMITTENT PRODUCTIVE COUGH. Triage Nurses Notes Reviewed? yes Onset: Just prior to arrival Duration: unknown duration Timing: recent history Injury Environment: home Severity: moderate No Modifying Factors: none Associated Symptoms: cough HPI: Prior to admission visiting nurse administered medications and thought patient was confused with swollen left middle finger. He complains of productive cough shortness of breath with exertion. He denies fever chills nausea vomiting diarrhea abdominal pain chest pain headache dysuria rash bleeding. (Juan Hardin MD) Past History Travel History Traveled to [place] past 21 day No Medical History Any Pertinent Medical History? see below for history Neurological: NONE EENT: NONE Cardiovascular: hyperlipidemia Respiratory: NONE Gastrointestinal: GERD Hepatic: NONE Renal: NONE Musculoskeletal: NONE Psychiatric: alcohol dependence, schizo affective disorder, MILD INTELLECTUAL DISABILITIES Endocrine: NONE Blood Disorders: NONE Cancer(s): NONE HEAD MILLER/Reproductive: NONE History of MRSA: No History of VRE: No History of CDIFF: No Surgical History Surgical History: NONE Psychosocial History Who do you live with Patient/Self What is your primary language Trinidadian Tobacco Use: Current Daily Use Daily Tobacco Use Amount/Type: => 5 Cigarettes daily Family History Hx Contributory? No (Juan Hardin MD) Review of Systems Review of Systems Constitutional: Reports: no symptoms. EENTM: Reports: no symptoms. Respiratory: Reports: see HPI, cough, short of breath, sputum production. Cardiovascular: Reports: no symptoms. GI: Reports: no symptoms. Genitourinary: Reports: no symptoms. Musculoskeletal: Reports: see HPI, joint pain, joint swelling. Skin: Reports: no symptoms. Neurological/Psychological: Reports: no symptoms. Hematologic/Endocrine: Reports: no symptoms. Immunologic/Allergic: Reports: no symptoms. All Other Systems: Reviewed and Negative (Juan Hardin MD) Physical Exam Physical Exam General Appearance: well developed/nourished, alert, awake, moderate distress, obese Head: atraumatic, normal appearance Eyes: Bilateral: normal appearance, PERRL, EOMI. Ears, Nose, Throat: normal pharynx, normal ENT inspection, hearing grossly normal Neck: normal inspection, supple, full range of motion, no midline tenderness Respiratory: chest non-tender, decreased breath sounds, wheezing Cardiovascular: regular rate/rhythm, normal peripheral pulses, tachycardia, norml femoral pulses equa Peripheral Pulses: 4+ carotid (R), 4+ carotid (L) Gastrointestinal: normal bowel sounds, soft, non-tender, no organomegaly Back: normal inspection, normal range of motion, no vertebral tenderness Extremities: normal inspection, normal capillary refill, normal range of motion, no edema Neurologic/Psych: no motor/sensory deficits, awake, alert, depressed affect Reflexes: 2+: bicep (R), bicep (L). Skin: intact, normal color, warm/dry Lymphatic: no anterior cervical rich Core Measures ACS in differential dx? No CVA/TIA Diagnosis: No Sepsis Present: No Sepsis Focused Exam Completed? No (Wilfred JOEL,Juan) Progress Differential Diagnoses I considered the following diagnoses in my evaluation of the patient: Pneumonia bronchitis COPD fracture Plan of Care: Orders Procedure Date/time Status Heart Healthy Diet 04/17 B Active URINALYSIS 04/16 1943 Complete Vital Signs 04/16 1939 Active EKG 04/16 1826 Active TROPONIN LEVEL 04/16 1825 Complete ETHANOL 04/16 1825 Complete B-TYPE NATRIURETIC PEP (BNP) 04/16 1825 Complete VALPROIC ACID 04/16 1819 Complete MAGNESIUM 04/16 1819 Complete COMPREHENSIVE METABOLIC PANEL 04/16 1819 Complete CBC WITHOUT DIFFERENTIAL 04/16 1819 Complete Patient Safety Monitor 04/16 0850 Active Laboratory Tests 04/16/188: Urine Color YEL, Urine Clarity HAZY H, Urine pH 6.0, Ur Specific [place] 1.020, Urine Protein TRACE H, Urine Ketones NEG, Urine Nitrite NEG, Urine Bilirubin NEG, Urine Urobilinogen 1.0, Ur Leukocyte Esterase NEG, Ur Microscopic SEDIMENT EXAMINED, Urine RBC RARE, Urine WBC RARE, Ur Epithelial Cells RARE, Urine Bacteria RARE H, Urine Hemoglobin NEG, Urine Glucose NEG 04/16/181824: Anion Gap 11, Estimated GFR > 60, BUN/Creatinine Ratio 14.5, Glucose 131 H, Calcium 9.8, Magnesium 1.7, Total Bilirubin 0.3, AST 19, ALT 20 L, Alkaline Phosphatase 68, Troponin I < 0.01, [id number]-Tlofsukthrv Pept 133 H, Total Protein 6.3, Albumin 3.6, Globulin 2.7, Albumin/Globulin Ratio 1.3, CBC w Diff NO MAN DIFF REQ, RBC 4.56 L, MCV 93.8, MCH 31.5 H, MCHC 33.7, RDW 14.0, MPV 8.1, Gran % 70.2, Lymphocytes % 18.4 L, Monocytes % 10.8 H, Eosinophils % 0.1, Basophils % 0.5, Absolute Granulocytes 5.9, Absolute Lymphocytes 1.6, Absolute Monocytes 0.9 H, Absolute Eosinophils 0, Absolute Basophils 0, Valproic Acid 59.8, Serum Alcohol < 10.0 04/16/18 1822: Troponin I Cancelled, Vdw-[id number] Pept Cancelled 04/16/18 1821: Serum Alcohol Cancelled Diagnostic Imaging: Viewed by Me: Radiology Read. Discussed w/RAD: Radiology Read. Radiology Impression: Soft tissue swelling to the third digit without fracture or dislocation. CXR Impression: No consolidation or alveolar edema. Initial ED EKG: normal axis, normal intervals, normal p-waves, normal QRS complex, rhythm (sinus tachycardia), no ST T wave changes Prior EKG: unchanged Rhythm Strip: sinus tachycardia Hand-Off Endorsed To: Qamar Iyer MD Endorsed Time: 1858 Pending: labs, other (Juan Hardin MD) Comments: 04/16/2018 7:28:36 PM patient signed out to me by Dr. Hardin at shift post exchange manager. 04/16/2018 9:49:32 PM according to patient's nurse, attempted to obtain a urine specimen have been met with angry threats. Gen is currently sleeping comfortably. I have ordered normal saline hoping to obtain a urine specimen spontaneously. I feel given the patient's age and urinary tract infection should be ruled out. 04/16/2018 11:42:08 PM urine specimen has been provided and the patient is currently eating a meal. 04/17/2018 7:11:40 AM patient signed out to Dr. Erickson at shift post exchange manager. (Qamar Iyer MD) Departure Departure Condition: Stable Referrals: Gautam Carrizales MD (PCP/Family) Departure Forms: Customer Survey General Discharge Information (Juan Hardin MD) Departure Disposition: HOME OR SELF CARE Clinical Impression Primary Impression: Schizoaffective disorder Qualifiers: Schizoaffective disorder type: unspecified Qualified Code: F25.9 - Schizoaffective disorder, unspecified Secondary Impressions: Bronchitis Contusion, finger Qualifiers: Encounter type: initial encounter Finger: middle finger Damage to nail status: without damage Laterality: left Qualified Code: S60.032A - Contusion of left middle finger without damage to nail, initial encounter (Qamar Iyer MD) Departure Additional Instructions: Return if symptoms worsen or for any concerns. (Dre JOEL,García Massey) Critical Care Note Critical Care Note Critical Care Time: non-applicable (Juan Hardin MD)
[2018-04-16 18:37] LABS: ABSOLUTE BASOPHIL COUNT 0 /CUMM (0.0-0.2); ABSOLUTE EOSINOPHIL COUNT 0 /CUMM (0.0-0.7); ABSOLUTE GRANULOCYTE CT 5.9 /CUMM (1.4-6.5); ABSOLUTE LYMPH COUNT 1.6 /CUMM (1.2-3.4); ABSOLUTE MONOCYTE COUNT 0.9 /CUMM (0.10-0.60); BASOPHIL % 0.5 % (0.0-2.0); EOSINOPHIL % 0.1 % (0-5); GRANULOCYTE % 70.2 % (42.2-75.2); HEMATOCRIT 42.7 % (42-52); MEAN CORPUSCULAR HGB 31.5 PG (27.0-31.0); MEAN CORPUSCULAR HGB CONC 33.7 G/DL (33.0-37.0); MEAN CORPUSCULAR VOLUME 93.8 FL (80.0-94.0); MEAN PLATELET VOLUME 8.1 FL (7.4-10.4); PLATELET COUNT 243 /CUMM (130-400); RED BLOOD CELL CT 4.56 /CUMM (4.70-6.10); WHITE BLOOD CELL COUNT 8.5 /CUMM (4.8-10.8)
--- NOTE | 2018-04-16 18:54 | RADIOLOGY REPORT ---
EXAMINATION: FINGER 3 VIEWS, LEFT CLINICAL INFORMATION: Swelling. COMPARISON: None. TECHNIQUE: A PA view of the left hand is provided along with two views of the third digit. FINDINGS: There is soft tissue swelling to the third digit. There are no fractures or dislocations. IMPRESSION: Soft tissue swelling to the third digit without fracture or dislocation.
--- NOTE | 2018-04-16 18:54 | RADIOLOGY REPORT ---
EXAMINATION: XR CHEST CLINICAL INFORMATION: Cough and confusion. COMPARISON: Chest radiograph 12/19/2017. TECHNIQUE: 4 views of the chest were performed. FINDINGS: There is mild diffuse prominence of the background interstitium. No consolidation, alveolar edema, pleural effusion, or pneumothorax. The cardiomediastinal silhouette appears normal. Multilevel degenerative changes are noted in the thoracic spine. IMPRESSION: No consolidation or alveolar edema.
[2018-04-17 08:41] VITALS: BP 137/91
== END 2018-04-17 08:44 ==
LOC: ERH 18:11
PROVIDERS: Emergency Medicine
DX: F25.9 Schizoaffective disorder, unspecified (principal); J40 Bronchitis, not specified as acute or chronic; S60.032A Contusion of left middle finger without damage to nail, initial encounter; F10.20 Alcohol dependence, uncomplicated; F17.210 Nicotine dependence, cigarettes, uncomplicated; X58.XXXA Exposure to other specified factors, initial encounter; Y93.9 Activity, unspecified
CPT/HCPCS: 71046; 73140-LT; 81001; 93005; 93010; G0480; J7040

== ENCOUNTER 2018-06-13 23:59 | Emergency (ER) | payer OTHER, MEDICARE ==
[2018-06-14 00:08] VITALS: BP 145/93
--- NOTE | 2018-06-14 00:45 | ED GENERAL ADULT ---
History of Present Illness General Chief Complaint: Fall Stated Complaint: FALL Source: patient, old records, EMS Exam Limitations: clinical condition Vital Signs & Intake/Output Vital Signs & Intake/Output Vital Signs Date Time Temp Pulse Resp B/P B/P Pulse O2 O2 Flow FiO2 Mean Ox Delivery Rate 06/14 0008 97.6 92 16 145/93 94 Room Air Allergies Coded Allergies: NO KNOWN ALLERGIES (06/08/16) Reconcile Medications Benztropine Mesylate 0.5 MG TABLET 1 TAB PO BID to prevent extrapyramidal s/e Divalproex Sodium 500 MG TABLET.DR 500 MG PO DAILY mood stabilizer Divalproex Sodium 500 MG TABLET.DR 2 TAB PO QPM mood stabilizer Finasteride 5 MG TABLET 1 TAB PO QPM PROSTATE (Reported) Multivitamin (One Daily Multivitamin) 1 EACH TABLET 1 TAB PO DAILY vitamin supplement Nicotine (Nicorelief) 2 MG GUM 2 MG PO Q2P PRN nicotine craving Olanzapine 20 MG TABLET 1 TAB PO QPM mood stability Olanzapine 5 MG TABLET 1 TAB PO DAILY mood stability Simvastatin (Simvastatin*) 40 MG TABLET 1 TAB PO QPM CHOLESTEROL (Reported) Tamsulosin HCl (Flomax) 0.4 MG CAP.ER.24H 1 CAP PO DAILY PROSTATE (Reported) Triage Note: PT TO ED BY AMBULANCE. PT NOTED SITTING ON GROUND [address] FROM ED. BYSTANDERS CALLED 911. PT REPORTS TRIP AND FALL. DENIES HITTING HEAD. REPORTS PAIN/SWELLING TO LEFT MIDDLE FINGER. DENIES ETOH USE. Triage Nurses Notes Reviewed? yes Onset: Just prior to arrival Duration: changing over time, unknown duration Timing: recent history Injury Environment: street Severity: mild, moderate Modifying Factors: Improves With: rest. Worsens With: movement. HPI: Prior to admission patient was found sitting on the curb in the rain. He reports falling with left middle finger pain. He denies fever chills nausea vomiting diarrhea abdominal pain chest pain shortness of breath headache dysuria rash bleeding. Past History Medical History Any Pertinent Medical History? see below for history Neurological: NONE EENT: NONE Cardiovascular: hyperlipidemia Respiratory: NONE Gastrointestinal: GERD Hepatic: NONE Renal: NONE Musculoskeletal: NONE Psychiatric: alcohol dependence, schizo affective disorder, MILD INTELLECTUAL DISABILITIES Endocrine: NONE Blood Disorders: NONE Cancer(s): NONE PERSONAL INVESTMENT ADVISER/Reproductive: NONE History of MRSA: No History of VRE: No History of CDIFF: No Surgical History Surgical History: NONE Psychosocial History Who do you live with Patient/Self What is your primary language [place] Family History Hx Contributory? No Review of Systems Review of Systems Constitutional: Reports: see HPI, weakness. EENTM: Reports: no symptoms. Respiratory: Reports: no symptoms. Cardiovascular: Reports: no symptoms. GI: Reports: no symptoms. Genitourinary: Reports: no symptoms. Musculoskeletal: Reports: see HPI, joint pain. Skin: Reports: no symptoms. Neurological/Psychological: Reports: no symptoms. Hematologic/Endocrine: Reports: no symptoms. Immunologic/Allergic: Reports: no symptoms. All Other Systems: Reviewed and Negative Physical Exam Physical Exam General Appearance: well developed/nourished, alert, awake, comfortable Head: atraumatic, normal appearance Eyes: Bilateral: normal appearance, PERRL, EOMI. Ears, Nose, Throat: normal pharynx, normal ENT inspection, hearing grossly normal Neck: normal inspection, supple, full range of motion, no midline tenderness Respiratory: normal breath sounds, chest non-tender, no respiratory distress, quiet respiration, lungs clear Cardiovascular: regular rate/rhythm, normal peripheral pulses, norml femoral pulses equa Peripheral Pulses: 4+ carotid (R), 4+ carotid (L) Gastrointestinal: normal bowel sounds, soft, non-tender, no organomegaly Back: normal inspection, normal range of motion Extremities: normal inspection, normal capillary refill, normal range of motion, no edema Neurologic/Psych: no motor/sensory deficits, awake, alert, oriented x 3, normal mood/affect, follow up clerk II-XII nml as tested Reflexes: 2+: bicep (R), bicep (L). Skin: intact, normal color, warm/dry Lymphatic: no anterior cervical rich Core Measures ACS in differential dx? No CVA/TIA Diagnosis: No Sepsis Present: No Sepsis Focused Exam Completed? No Progress Differential Diagnoses I considered the following diagnoses in my evaluation of the patient: Alcohol intoxication medication reaction Plan of Care: Current Medications Sig/Andria Start time Last Medication Dose Stop Time Status Admin Divalproex Sodium 1,000 MG ONCE ONE 06/14 45 UNVr (Depakote ER) 06/14 46 Initial ED EKG: none Departure Departure Disposition: HOME OR SELF CARE Condition: Stable Clinical Impression Primary Impression: Fall due to stumbling Secondary Impressions: Finger contusion Referrals: Gautam Carrizales MD (PCP/Family) Departure Forms: General Discharge Information Critical Care Note Critical Care Note Critical Care Time: non-applicable
== END 2018-06-14 07:50 ==
LOC: ERH 23:59
DX: S60.032A Contusion of left middle finger without damage to nail, initial encounter (principal); W19.XXXA Unspecified fall, initial encounter